=== PATIENT | male | born 1995 | race Two or more races ===

== ENCOUNTER 2024-11-19 09:23 | Emergency (ER) | payer OTHER, SELFPAY ==
[2024-11-19 09:24] VITALS: BMI 24.4
[2024-11-19 09:32] VITALS: BP 136/78; PULSE 53; RESP 17; TEMP 36.4; O2SAT 98
--- NOTE | 2024-11-19 09:42 | XR_ITS ---
Examination: PA lateral chest 2 views TECHNIQUE: Upright PA lateral chest 2 views Date and time: November 20, 1999 2510 0 5:00 AM INDICATIONS: Coughing 3 weeks. FINDINGS: Normal heart size Lungs are clear. The osseous structures are intact IMPRESSION: No active disease
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
[2024-11-19 15:20] LABS: Cocci Serology, IgM Negative (Negative)
[2024-11-20 12:49] LABS: Cocci Serology, IgG Negative (Negative)
== END 2024-11-19 10:53 | disposition home or self-care (01) ==
PROVIDERS: Nurse Practitioner Primary Care; Emergency Provider Family Medicine
DX: R05.9 Cough, unspecified (principal); X01.1XXA Exposure to smoke in uncontrolled fire, not in building or structure, initial encounter; Y93.89 Activity, other specified; Y99.0 Civilian activity done for income or pay
CPT/HCPCS: 36415; 71046; 86331; 86635; 99283